=== PATIENT | male | born 1995 | race Caucasian/White ===

== ENCOUNTER 2016-07-16 23:18 | Emergency (ER) | payer SELFPAY ==
[2016-07-17 01:03] VITALS: BP 141/74
== END 2016-07-17 01:03 | disposition home or self-care (01) ==
LOC: ED 23:18
DX: S97.111A Crushing injury of right great toe, initial encounter (principal); X58.XXXA Exposure to other specified factors, initial encounter; Y93.89 Activity, other specified; Y99.8 Other external cause status; Y92.89 Other specified places as the place of occurrence of the external cause

== ENCOUNTER 2017-05-12 16:46 | Emergency (ER) | payer OTHER ==
[~2017-05-12] VITALS: Ht 170.2 cm; Wt 89.0 kg
[2017-05-12 16:48] VITALS: Ht 170.2 cm; Wt 89.0 kg
[2017-05-12 17:34] LABS: BASOPHIL % 0.2 % (0-2); CALCIUM 9.6 mg/dL (8.5-10.1); CARBON DIOXIDE 29.4 mmol/L (21-32); CHLORIDE SERUM 102 mmol/L (98-107); GFR1 > 60 mL/min; GLUCOSE SERUM 87 mg/dL (74-106); PLATELET COUNT 334 x10^3mcL (130-400); POTASSIUM SERUM 3.9 mmol/L (3.5-5.1); RED CELL DISTRIBUTION WIDTH 13.7 % (11.5-14.5); SODIUM SERUM 141 mmol/L (136-145)
[2017-05-12 17:48] LABS: ALBUMIN 4.4 g/dL (3.4-5.0); ALKALINE PHOSPHATASE 83 U/L (46-116); ALT/SGPT 132 U/L (16-63); AMYLASE 50 U/L (25-115); AST/SGOT 75 U/L (15-37); BILIRUBIN TOTAL 0.4 mg/dL (0.20-1.00); LIPASE 102 IU/L (73-393)
[2017-05-12 17:51] LABS: TOTAL PROTEIN, SERUM 8.8 g/dL (6.4-8.2)
[2017-05-12 20:59] VITALS: BP 111/86
== END 2017-05-12 20:59 | disposition home or self-care (01) ==
LOC: ED 16:46
PROVIDERS: Emergency Medicine
DX: K29.00 Acute gastritis without bleeding (principal)
CPT/HCPCS: 83880; J2405; J3010; J3490; J7030; Q0092

== ENCOUNTER 2019-01-23 20:25 | Emergency (ER) | payer OTHER ==
[~2019-01-23] VITALS: Ht 167.6 cm; Wt 88.5 kg
[2019-01-23 20:29] VITALS: Ht 167.6 cm; Wt 88.5 kg
[2019-01-23 23:02] VITALS: BP 120/78
== END 2019-01-23 23:02 | disposition home or self-care (01) ==
LOC: ED 20:25
DX: M54.5 Low back pain (principal); Z87.19 Personal history of other diseases of the digestive system